=== PATIENT | male | born 1970 | race Caucasian/White ===

== ENCOUNTER 2017-05-04 17:01 | Emergency (ER) | payer OTHER ==
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
--- NOTE | 2017-05-04 18:49 | XR ---
EXAMINATION TYPE: XR ribs LT w pa chest xray DATE OF EXAM: 05/04/2017 COMPARISON: NONE HISTORY: Chest pain and rib pain TECHNIQUE: 5 views FINDINGS: Heart and mediastinum are normal. Lungs are clear of infiltrate. I see no pleural effusion or pneumothorax. The left ribs appear intact. IMPRESSION: Normal chest and normal left rib exam.
[2017-05-04 19:14] VITALS: BP 129/80; PULSE 80; RESP 16; TEMP 98.5
== END 2017-05-04 19:31 | disposition left against medical advice (07) ==
LOC: EC 17:01
DX: S00.83XA Contusion of other part of head, initial encounter (principal); S20.212A Contusion of left front wall of thorax, initial encounter; F17.200 Nicotine dependence, unspecified, uncomplicated; Y04.0XXA Assault by unarmed brawl or fight, initial encounter; Y92.410 Unspecified street and highway as the place of occurrence of the external cause; Y93.01 Activity, walking, marching and hiking
CPT/HCPCS: 70450; 70486; 72125; 99284

== ENCOUNTER 2017-07-08 16:13 | Emergency (ER) | payer OTHER ==
[2017-07-08 16:16] VITALS: TEMP 97.5
[2017-07-08] MEDS ORDERED: SODIUM CHLORIDE 0.9% 1,000 ML IV STA (16:28)
[2017-07-08] MEDS ORDERED: RX INFO: IV CONTRAST WAS GIVEN 1 EACH MISC MISCELLANE PRN (16:36)
--- NOTE | 2017-07-08 16:38 | ED ---
Abdominal Pain HPI - General Chief Complaint: Abdominal Pain Stated Complaint: Lower Abd Pain Time Seen by Provider: 07/08/17 16:27 Source: patient, RN notes reviewed Mode of arrival: ambulatory Limitations: no limitations - History of Present Illness Initial Comments: This 46-year-old male presents emergency Department with right lower quadrant, right groin pain. Patient states that she had pain last 2 weeks states worse. Patient states he is no change in bowel habits denies any diarrhea, constipation , melena or hematochezia. Patient denies any nausea, vomiting, chest pain, back pain. Patient states that a large amount of lifting and twisting bending does increase his pain. Patient said no prior abdominal surgeries. Patient denies any bulging or swelling noted. - Related Data Home Medications Medication Instructions Recorded Confirmed No Known Home Medications [No 05/04/17 07/08/17 Known Home Medications] Allergies Allergy/AdvReac Type Severity Reaction Status Date / Time No Known Allergies Allergy Verified 07/08/17 16:29 Review of Systems ROS Statement: Those systems with pertinent positive or pertinent negative responses have been documented in the HPI. ROS Other: All systems not noted in ROS Statement are negative. Past Medical History Past Medical History: Chest Pain / Angina, Myocardial Infarction ([place]) Additional Past Medical History / Comment(s): [place] x 2 Last Myocardial Infarction Date:: 2007 History of Any Multi-Drug Resistant Organisms: None Reported Past Surgical History: No Surgical Hx Reported Additional Past Surgical History / Comment(s): Knee surg Past Anesthesia/Blood Transfusion Reactions: No Reported Reaction Past Psychological History: No Psychological Hx Reported Smoking Status: Current every day smoker Past Alcohol Use History: Abuse, Daily, Heavy Past Drug Use History: None Reported - Past Family History Mother Family Medical History: Cancer Additional Family Medical History / Comment(s): Lung CA Father Family Medical History: Myocardial Infarction ([place]) Additional Family Medical History / Comment(s): Cirrhosis of liver. of [place] General Exam Limitations: no limitations General appearance: alert, in no apparent distress Head exam: Present: atraumatic, normocephalic, normal inspection Respiratory exam: Present: normal lung sounds bilaterally. Absent: respiratory distress, wheezes, rales, rhonchi, stridor Cardiovascular Exam: Present: regular rate, normal rhythm, normal heart sounds. Absent: systolic murmur, diastolic murmur, rubs, gallop, clicks GI/Abdominal exam: Present: soft, tenderness (Mild right inguinal region), normal bowel sounds. Absent: distended, guarding, rebound, rigid Back exam: Absent: CVA tenderness (R), CVA tenderness (L) Course Vital Signs 07/08/17 16:15 Temperature 97.5 F L Pulse Rate 109 H Respiratory 20 Rate Blood Pressure 134/89 O2 Sat by Pulse 96 Oximetry Medical Decision Making - Medical Decision Making 38-year-old male presented for right lower groin pain. Patient has a right inguinal hernia. Patient pain has been persistent last few weeks. Patient will follow-up with on-call surgery Dr. Amanda return parameters were discussed. - Lab Data Result diagrams: 07/08/17 16:30 07/08/17 16:30 Lab Results 07/08/17 07/08/17 07/08/17 Range/Units 16:30 16:30 16:42 WBC 7.9 (3.8-10.6) k/uL RBC 4.14 L (4.30-5.90) m/uL Hgb 14.4 (13.0-17.5) gm/dL Hct 42.3 (39.0-53.0) % MCV 102.2 H (80.0-100.0) fL MCH 34.7 (25.0-35.0) pg MCHC 34.0 (31.0-37.0) g/dL RDW 15.0 (11.5-15.5) % Plt Count 300 (150-450) k/uL Neutrophils % 52 % Lymphocytes % 35 % Monocytes % 7 % Eosinophils % 2 % Basophils % 1 % Neutrophils # 4.1 (1.3-7.7) k/uL Lymphocytes # 2.8 (1.0-4.8) k/uL Monocytes # 0.5 (0-1.0) k/uL Eosinophils # 0.2 (0-0.7) k/uL Basophils # 0.0 (0-0.2) k/uL Macrocytosis Slight Sodium 132 L (137-145) mmol/L Potassium 4.5 (3.5-5.1) mmol/L Chloride 98 (98-107) mmol/L Carbon Dioxide 21 L (22-30) mmol/L Anion Gap 13 mmol/L BUN 7 L (9-20) mg/dL Creatinine 0.82 (0.66-1.25) mg/dL Est GFR (MDRD) Af Amer >60 (>60 ml/min/1.73 sqM) Est GFR (MDRD) Non-Af >60 (>60 ml/min/1.73 sqM) Glucose 82 (74-99) mg/dL Plasma Lactic Acid Cristhian 1.6 (0.7-2.0) mmol/L Calcium 9.5 (8.4-10.2) mg/dL Total Bilirubin 0.8 (0.2-1.3) mg/dL AST 42 (17-59) U/L ALT 48 (21-72) U/L Alkaline Phosphatase 64 (38-126) U/L Total Protein 7.8 (6.3-8.2) g/dL Albumin 4.7 (3.5-5.0) g/dL Amylase 138 H (30-110) U/L Lipase 231 (23-300) U/L Urine Color Urine Appearance (Clear) Urine pH (5.0-8.0) Ur Specific [place] (1.001-1.035) Urine Protein (Negative) Urine Glucose (UA) (Negative) Urine Ketones (Negative) Urine Blood (Negative) Urine Nitrite (Negative) Urine Bilirubin (Negative) Urine Urobilinogen (<2.0) mg/dL Ur Leukocyte Esterase (Negative) 07/08/17 Range/Units 16:50 WBC (3.8-10.6) k/uL RBC (4.30-5.90) m/uL Hgb (13.0-17.5) gm/dL Hct (39.0-53.0) % MCV (80.0-100.0) fL MCH (25.0-35.0) pg MCHC (31.0-37.0) g/dL RDW (11.5-15.5) % Plt Count (150-450) k/uL Neutrophils % % Lymphocytes % % Monocytes % % Eosinophils % % Basophils % % Neutrophils # (1.3-7.7) k/uL Lymphocytes # (1.0-4.8) k/uL Monocytes # (0-1.0) k/uL Eosinophils # (0-0.7) k/uL Basophils # (0-0.2) k/uL Macrocytosis Sodium (137-145) mmol/L Potassium (3.5-5.1) mmol/L Chloride (98-107) mmol/L Carbon Dioxide (22-30) mmol/L Anion Gap mmol/L BUN (9-20) mg/dL Creatinine (0.66-1.25) mg/dL Est GFR (MDRD) Af Amer (>60 ml/min/1.73 sqM) Est GFR (MDRD) Non-Af (>60 ml/min/1.73 sqM) Glucose (74-99) mg/dL Plasma Lactic Acid Cristhian (0.7-2.0) mmol/L Calcium (8.4-10.2) mg/dL Total Bilirubin (0.2-1.3) mg/dL AST (17-59) U/L ALT (21-72) U/L Alkaline Phosphatase (38-126) U/L Total Protein (6.3-8.2) g/dL Albumin (3.5-5.0) g/dL Amylase (30-110) U/L Lipase (23-300) U/L Urine Color Light Yellow Urine Appearance Clear (Clear) Urine pH 5.5 (5.0-8.0) Ur Specific [place] 1.002 (1.001-1.035) Urine Protein Negative (Negative) Urine Glucose (UA) Negative (Negative) Urine Ketones Negative (Negative) Urine Blood Negative (Negative) Urine Nitrite Negative (Negative) Urine Bilirubin Negative (Negative) Urine Urobilinogen <2.0 (<2.0) mg/dL Ur Leukocyte Esterase Negative (Negative) Disposition Clinical Impression: Right inguinal hernia Disposition: HOME SELF-CARE Condition: Stable Instructions: Inguinal Hernia (ED) Additional Instructions: Please return to the Emergency Department if symptoms worsen or any other concerns. Referrals: None,Stated [Primary Care Provider] - 1-2 days Paul Amanda MD [Medical Doctor] - 1-2 days Time of Disposition: 17:27
[2017-07-08 16:44] LABS: Basophils % (A) 1 %; CH 34.4; CHCM 33.8; Eosinophils # (A) 0.2 k/uL (0-0.7); Eosinophils % (A) 2 %; HCT 42.3 % (39.0-53.0); HDW 2.39; HGB 14.4 gm/dL (13.0-17.5); Luc # (Auto) 0.26; Luc % (Auto) 3; Lymphocytes # (A) 2.8 k/uL (1.0-4.8); Lymphocytes % (A) 35 %; MCH 34.7 pg (25.0-35.0); MCV 102.2 fL (80.0-100.0); Macrocytosis Slight; Monocytes # (A) 0.5 k/uL (0-1.0); Monocytes % (A) 7 %; Neutrophils # (A) 4.1 k/uL (1.3-7.7); Neutrophils % (A) 52 %; RBC 4.14 m/uL (4.30-5.90); WBC 7.9 k/uL (3.8-10.6); WBC (Perox) 7.36
[2017-07-08 16:53] LABS: ALT 48 U/L (21-72); AST 42 U/L (17-59); Alkaline Phosphatase 64 U/L (38-126); Amylase 138 U/L (30-110); Anion Gap 13 mmol/L; Blood Urea Nitrogen 7 mg/dL (9-20); Calcium 9.5 mg/dL (8.4-10.2); Carbon Dioxide 21 mmol/L (22-30); Chloride 98 mmol/L (98-107); Glucose 82 mg/dL (74-99); Non-African American GFR(MDRD) >60 (>60 ml/min/1.73 sqM); Potassium 4.5 mmol/L (3.5-5.1); Sodium 132 mmol/L (137-145); Total Bilirubin 0.8 mg/dL (0.2-1.3); Total Protein 7.8 g/dL (6.3-8.2)
[2017-07-08 17:13] LABS: Appearance,Urine Clear (Clear); Bilirubin,Urine Negative (Negative); Glucose,Urine (UA) Negative (Negative); Ketones,Urine Negative (Negative); Leukocyte Esterase,Urine Negative (Negative); Nitrite,Urine Negative (Negative); PH, Urine 5.5 (5.0-8.0); Protein,Urine Negative (Negative); Specific Gravity,Urine 1.002 (1.001-1.035); UA Billing (MACRO vs. MICRO) CHEM; Urobilinogen,Urine <2.0 mg/dL (<2.0)
--- NOTE | 2017-07-08 17:20 | CT ---
EXAMINATION TYPE: CT abdomen pelvis w con DATE OF EXAM: 07/08/2017 COMPARISON: NONE HISTORY: RLQ pain for [address] DLP: 520.4 mGycm Automated exposure control for dose reduction was used. TECHNIQUE: Helical acquisition of images was performed from the lung bases through the pelvis. CONTRAST: Performed without Oral Contrast and with IV Contrast, patient injected with 100 mL of Omnipaque 300. FINDINGS: Lung bases are clear. There is no pleural effusion. Heart size is normal. Liver spleen pancreas gallbladder appear normal. Bile ducts are not dilated. There is no adrenal mass . Kidneys show satisfactory contrast opacification. There is no hydronephrosis. There is no retroperito mady adenopathy. There is no ascites. Bladder distends smoothly. There is mild urinary bladder wall t hickening. I see no intestinal wall thickening. There are no dilated loops. There is no free fluid in the pelvis . Appendix appears normal. I see no bony destructive process. There is evidence for small right inguinal hernia that contains omental fat. IMPRESSION: MILD URINARY BLADDER WALL THICKENING CONSISTENT WITH NONSPECIFIC CYSTITIS. BORDERLINE RIGHT INGUINAL HERNIA. NORMAL APPENDIX.
[2017-07-08 17:38] VITALS: BP 118/59; PULSE 88; RESP 16
== END 2017-07-08 17:38 | disposition home or self-care (01) ==
LOC: EC 16:13
DX: K40.90 Unilateral inguinal hernia, without obstruction or gangrene, not specified as recurrent (principal); F17.200 Nicotine dependence, unspecified, uncomplicated
CPT/HCPCS: 36415; 80053; 82150; 83605; 83690; 85025; 81003; 74177; 99284; 96360; Q9967

== ENCOUNTER 2017-09-06 08:53 | Day surgery (SDC) | payer OTHER ==
--- NOTE | 2017-09-04 17:44 | P.GSHP ---
History of Present Illness H&P Date: 09/06/17 Chief Complaint: Right inguinal hernia Patient seen in the office in July. Has complaints of a painful bulge in the right groin. He went to the ER for evaluation. A CAT scan confirmed a right inguinal hernia. Denies nausea or vomiting. No change in bowel habits. The patient has a history of previous [place]. He was seen by Dr. Clemens from cardiology for clearance. He was cleared for the procedure at that time. Past Medical History Past Medical History: Chest Pain / Angina, Myocardial Infarction ([place]) Additional Past Medical History / Comment(s): [place] x 2 Last Myocardial Infarction Date:: 2007 History of Any Multi-Drug Resistant Organisms: None Reported Past Surgical History: No Surgical Hx Reported Additional Past Surgical History / Comment(s): Knee surg Past Anesthesia/Blood Transfusion Reactions: No Reported Reaction Additional Past Anesthesia/Blood Transfusion Reaction / Comment(s): NO GENERAL ANESTHESIA. Past Psychological History: No Psychological Hx Reported Smoking Status: Current every day smoker Past Alcohol Use History: Abuse, Daily, Heavy Additional Past Alcohol Use History / Comment(s): SMOKES 1 PPD, 20 YRS. A COUPLE A BEERS. Past Drug Use History: None Reported - Past Family History Mother Family Medical History: Cancer Additional Family Medical History / Comment(s): Lung CA Father Family Medical History: Myocardial Infarction ([place]) Additional Family Medical History / Comment(s): Cirrhosis of liver. of [place] Medications and Allergies Home Medications Medication Instructions Recorded Confirmed Type No Known Home Medications [No 05/04/17 09/01/17 History Known Home Medications] Allergies Allergy/AdvReac Type Severity Reaction Status Date / Time No Known Allergies Allergy Verified 09/01/17 15:03 Surgical - Exam Physical exam: General: Well-developed, well-nourished HEENT: Normocephalic, sclerae nonicteric Abdomen: Nontender, nondistended, reducible moderate sized right hernia, no palpable left inguinal hernia, both testicles normal, questionable small incarcerated umbilical hernia Extremities: No edema Neuro: Alert and oriented Assessment and Plan (1) Right inguinal hernia Narrative/Plan: Options were discussed with the patient. We'll proceed with laparoscopic da Inessa assisted right inguinal hernia repair with mesh, possible bilateral, possible umbilical hernia repair with mesh on 09/06. Risks of bleeding, infection, recurrence, bladder and bowel injury, numbness, nerve injury, conversion to an open procedure were discussed with the patient. The patient understands and wishes to proceed. Status: Acute Code(s): K40.90 - UNIL INGUINAL HERNIA, W/O OBST OR GANGR, NOT SPCF RECUR [facility] Code(s): 394974337
[~2017-09-06 08:53] MED LIST: DEXAMETHASONE SOD PHOSPHATE 10 MG/ML 1 ML VIAL IV ONE; HEPARIN SODIUM,PORCINE 5,000 UNIT/ML 1 ML VIAL SQ ONE; HYDROmorphone 0.5 MG/0.5 ML SYRINGE IVP PRN; MIDAZOLAM 2 MG/2 ML VIAL IV PRN; ONDANSETRON 4 MG/2 ML VIAL IVP ONE; SCOPOLAMINE 1.5MG/72HR PATCH TRANSDERM ONE; ceFAZolin IN SWFI 2 GM/20 ML SYRINGE IVP ONE
[2017-09-06] MEDS ORDERED: LIDOCAINE 1% 20 ML VIAL (10MG/ML) FOR IV START INTRADERMA ONE (09:30)
[2017-09-06 09:34] VITALS: RESP 16
[2017-09-06] MEDS: LACTATED RINGERS 1,000 ML IV SCH (09:34)
[2017-09-06] MEDS ORDERED: PROPOFOL 10 MG/ML 20 ML VIAL IV ONE (09:35)
[2017-09-06] MEDS ORDERED: SUCCINYLCHOLINE CHLORIDE 100 MG/5 ML SYR IV ONE (09:35)
[2017-09-06] MEDS ORDERED: MIDAZOLAM 2 MG/2 ML VIAL ONE (09:35)
[2017-09-06] MEDS ORDERED: ROCURONIUM BROMIDE 10 MG/ML 10 ML VIAL IV ONE (09:35)
[2017-09-06] MEDS ORDERED: HYDROmorphone (PF) 1 MG/ML ONE (09:35)
[2017-09-06] MEDS ORDERED: LIDOCAINE 1% INJ 10MG/ML (20 ML MDV) ONE (09:35)
[2017-09-06] MEDS ORDERED: NEOSTIGMINE 1 MG/ML 10 ML VIAL ONE (09:35)
[2017-09-06] MEDS ORDERED: GLYCOPYRROLATE 0.2 MG/ML 2 ML VIAL ONE (09:35)
[2017-09-06] MEDS ORDERED: fentaNYL (PF) 50 MCG/ML 2 ML AMP ONE (09:35)
[2017-09-06] MEDS ORDERED: LABETALOL 5 MG/ML VIAL MDV ONE (09:35)
[2017-09-06] MEDS ORDERED: KETOROLAC 30 MG/ML 1 ML VIAL ONE (09:35)
[2017-09-06] MEDS ORDERED: BUPIVACAINE (PF) 0.25% 30 ML VIAL SQ ONE (10:24)
[2017-09-06] MEDS ORDERED: NALOXONE 0.4 MG/ML 1 ML VIAL IV PRN (11:41)
[2017-09-06] MEDS ORDERED: HYDROcodone/APAP 5-325MG 1 EACH TAB PO PRN (11:41)
[2017-09-06] MEDS ORDERED: LACTATED RINGERS 1,000 ML IV ONE (11:46)
--- NOTE | 2017-09-06 11:48 | P.OP ---
Date of Procedure: 09/06/17 Procedure(s) Performed: PREOPERATIVE DIAGNOSIS: Right inguinal hernia, umbilical hernia POSTOPERATIVE DIAGNOSIS: Same PROCEDURE: Laparoscopic repair right inguinal hernia with the da Inessa robot assistance with mesh, open umbilical herniorrhaphy SURGEON: Treasure EBL: Minimal ANESTHESIA: General COMPLICATIONS: None OPERATIVE PROCEDURE: Patient was placed in the operating table in the supine position. The patient was placed under general anesthesia. The patient was then placed in lithotomy. The abdomen was prepped and draped in usual sterile fashion. A infraumbilical incision was made using the scalpel. The subcutaneous tissues were dissected bluntly. The hernia sac was identified. The umbilical attachments to the fascia were divided using electrocautery. The hernia sac was excised. The fascia was retracted anteriorly with Oliva forceps. The Veress needle was inserted through the defect in the fascia. The saline drop test was normal. Insufflation took place to 15 mmHg. A 5 mm trocar was then inserted this was later switched to a 12 mm trocar. 2 additional 8 mm trochars were placed in the right upper quadrant and left upper quadrant under visualization. The robotic arms were then brought in and docked into place. The fenestrated bipolar was used in the left arm and the laparoscopic hook cautery was utilized in the right arm. A 30 12 mm scope was used in the up position. The peritoneal cavity was inspected. The patient had a obvious right indirect inguinal hernia. There was a slight depression at the internal inguinal ring on the left without definite hernia formation. The peritoneum was incised in a horizontal fashion cephalad to the internal inguinal ring. Following that careful dissection of the preperitoneal space took place. This took place using both electrocautery, sharp dissection but primarily blunt dissection. Visualization of the pubic tubercle and Arthur's ligament took place medially. Full dissection took place laterally as well. The patient's hernia was fairly large in size. The hernia sac was fully dissected. Once we had adequate space the 15 x 10 progrip mesh was advanced into the preperitoneal space and flattened out appropriately to cover all potential hernia sites. No sutures were used. The peritoneal defect was then closed using a locking 2-0 VLok suture. A small 1 x 1 cm defect in the peritoneum was closed using a short running 2-0 Vicryl stitch. The pneumoperitoneum was then evacuated. The fascia at the 12 mm site was closed using interrupted [id number] Ethibond sutures. The skin of all 3 sites was closed using a 4-0 Monocryl stitch. Steri-Strips and sterile dressings were applied. DISPOSITION: Stable to recovery room
[2017-09-06 11:58] VITALS: TEMP 98.6
[2017-09-06] MEDS ORDERED: HYDROcodone/APAP 5-325MG 1 EACH TAB PO ONE (13:43)
[2017-09-06 14:41] VITALS: BP 146/90; PULSE 71
== END 2017-09-06 15:10 | disposition home or self-care (01) ==
LOC: OR 08:53
PROVIDERS: ATTEND Surgery
DX: K40.90 Unilateral inguinal hernia, without obstruction or gangrene, not specified as recurrent (principal); K42.9 Umbilical hernia without obstruction or gangrene; I25.10 Atherosclerotic heart disease of native coronary artery without angina pectoris; I25.2 Old myocardial infarction; F17.210 Nicotine dependence, cigarettes, uncomplicated; Z82.49 Family history of ischemic heart disease and other diseases of the circulatory system; Z80.1 Family history of malignant neoplasm of trachea, bronchus and lung
CPT/HCPCS: 49650; 49585; 93005; 86900; 86901; 86850; 36415; J1644; J1100; J0690; J2405

== ENCOUNTER 2017-10-02 21:06 | Emergency (ER) | payer OTHER ==
[2017-10-02] MEDS ORDERED: KETOROLAC 30 MG/ML 1 ML VIAL IVP STA (21:57)
[2017-10-02] MEDS ORDERED: DEXAMETHASONE SOD PHOSPHATE 10 MG/ML 1 ML VIAL IV STA (21:57)
[2017-10-02] MEDS ORDERED: diphenhydrAMINE 50 MG/ML 1 ML VIAL IVP STA (21:57)
[2017-10-02] MEDS ORDERED: SODIUM CHLORIDE 0.9% 1,000 ML IV ONE (21:57)
[2017-10-02] MEDS ORDERED: METOCLOPRAMIDE 5 MG/ML 2 ML VIAL IVP STA (21:57)
--- NOTE | 2017-10-02 22:02 | ED ---
Headache HPI - General Chief Complaint: Headache Stated Complaint: headache Time Seen by Provider: 10/02/17 21:36 Mode of arrival: wheelchair Limitations: no limitations - History of Present Illness Initial Comments: patient is a 47-year-old male with a history of alcohol abuse and previous NM who presents with a chief complaint of a headache. He also has a medical history that includes migraine headaches. He states this is been going on for 14 days. Patient states that the pain pattern is typical of a migraine though he has never had workup for this long. He tried taking Aleve at home without relief. He cannot identify any inciting incidences. Light and sound or aggravating factors. There are no alleviating factors. Timing is been constant. Patient states that he walked to the emergency department today. - Related Data Home Medications Medication Instructions Recorded Confirmed No Known Home Medications [No 05/04/17 10/02/17 Known Home Medications] Allergies Allergy/AdvReac Type Severity Reaction Status Date / Time No Known Allergies Allergy Verified 10/02/17 21:28 Review of Systems ROS Statement: Those systems with pertinent positive or pertinent negative responses have been documented in the HPI. ROS Other: All systems not noted in ROS Statement are negative. Constitutional: Denies: fever Eyes: Denies: vision change ENT: Denies: throat pain Respiratory: Denies: cough Cardiovascular: Denies: chest pain Gastrointestinal: Denies: abdominal pain, nausea, vomiting Genitourinary: Denies: dysuria Musculoskeletal: Denies: back pain Skin: Denies: rash Neurological: Reports: headache Past Medical History Past Medical History: Chest Pain / Angina, Myocardial Infarction ([place]) Additional Past Medical History / Comment(s): [place] x 2 Last Myocardial Infarction Date:: 2007 History of Any Multi-Drug Resistant Organisms: None Reported Past Surgical History: Hernia Repair Additional Past Surgical History / Comment(s): Knee surg Past Anesthesia/Blood Transfusion Reactions: No Reported Reaction Additional Past Anesthesia/Blood Transfusion Reaction / Comment(s): NO GENERAL ANESTHESIA. Past Psychological History: No Psychological Hx Reported Smoking Status: Current every day smoker Past Alcohol Use History: Abuse, Daily, Heavy Past Drug Use History: None Reported - Past Family History Mother Family Medical History: Cancer Additional Family Medical History / Comment(s): Lung CA Father Family Medical History: Myocardial Infarction ([place]) Additional Family Medical History / Comment(s): Cirrhosis of liver. of [place] General Exam Limitations: no limitations General appearance: alert, in no apparent distress Head exam: Present: atraumatic, normocephalic Eye exam: Present: normal appearance, PERRL, EOMI Neck exam: Absent: lymphadenopathy Respiratory exam: Present: normal lung sounds bilaterally Cardiovascular Exam: Present: regular rate, normal rhythm GI/Abdominal exam: Present: soft. Absent: distended, tenderness Rectal exam: Present: deferred Neurological exam: Present: alert, oriented X3, CN II-XII intact, normal gait, other (negative Romberg, there are no meningeal signs) Psychiatric exam: Present: normal affect, normal mood Skin exam: Present: warm, dry, intact Course Vital Signs 10/02/17 10/02/17 21:21 22:21 Temperature 98.5 F Pulse Rate 69 58 L Respiratory 18 18 Rate Blood Pressure 123/78 146/78 O2 Sat by Pulse 98 96 Oximetry Medical Decision Making - Medical Decision Making patient presents with a chief complaint of headache 2 weeks. On initial evaluation, vital signs are stable, patient is in no acute distress and looks uncomfortable secondary to headache. This headache fits his normal migraine pattern however this is just a longer duration. On exam, there is no neck tenderness or meningeal signs. Neurologic examination is benign. Patient will be given a migraine cocktail and reassessed. 11:39 PM On reevaluation, patient is in walking. He states that he feels better. At this time he is stable for discharge. He was given exposing signs and symptoms that should probably return visit to the emergency department. He is further advised to follow-up with primary care in 1-2 days. Disposition Clinical Impression: Migraine headache Disposition: HOME SELF-CARE Condition: Good Instructions: Acute Headache (ED) Referrals: None,Stated [Primary Care Provider] - 1-2 days
[2017-10-02 23:45] VITALS: BP 137/71; PULSE 62; RESP 16; TEMP 98
== END 2017-10-02 23:55 | disposition home or self-care (01) ==
LOC: EC 21:06
DX: G43.909 Migraine, unspecified, not intractable, without status migrainosus (principal); F17.200 Nicotine dependence, unspecified, uncomplicated
CPT/HCPCS: 99284; 96374; 96375 ×3; 96361; J1200; J1100; J2765; J1885

== ENCOUNTER 2017-11-29 11:05 | Emergency (ER) | payer OTHER ==
[2017-11-29 11:15] VITALS: TEMP 96.8
[2017-11-29] MEDS ORDERED: ORPHENADRINE 30 MG/ML 2 ML VIAL IM STA (11:28)
[2017-11-29] MEDS ORDERED: methylPREDNISolone SOD SUCCI 125 MG/2 ML VIAL IM STA (11:28)
[2017-11-29] MEDS ORDERED: KETOROLAC 60 MG/2 ML VIAL IM STA (11:28)
--- NOTE | 2017-11-29 11:43 | ED ---
General Adult HPI - General Chief complaint: Back Pain/Injury Stated complaint: Back Pain Time Seen by Provider: 11/29/17 11:21 Source: patient, EMS, RN notes reviewed Mode of arrival: EMS Limitations: no limitations - History of Present Illness Initial comments: 47 yo male presents to the ER with cc of right sided back pain. Patient has had this pain for about 3 months. Patient states it is on and off. Patient states that his left groin hip and radiates on the left leg. Patient states that when he wakes up that this type of by the end of the day it's loose. Patient states that today he woke up and it just seems to be tighter than normal so he thought that he should be seen. He denies any falls traumas or injuries. He denies any loss of bowel or bladder function or any saddle anesthesia. Patient states eating seems to make it better sitting seems to make it worse. Patient denies any recent fever, chills, shortness of breath, chest pain, abdominal pain, nausea vomiting, numbness or tingling, dysuria or hematuria, constipation or diarrhea, headaches or visual changes, or any other current symptoms. - Related Data Home Medications Medication Instructions Recorded Confirmed Ibuprofen [Motrin Ib] 800 mg PO Q6H PRN 11/29/17 11/29/17 Previous Rx's Medication Instructions Recorded Ibuprofen [Motrin] 600 mg PO Q6HR PRN #20 tab 11/29/17 Orphenadrine [Norflex] 100 mg PO Q12H #10 tablet.er 11/29/17 predniSONE 50 mg PO DAILY #5 tab 11/29/17 Allergies Allergy/AdvReac Type Severity Reaction Status Date / Time No Known Allergies Allergy Verified 11/29/17 11:28 Review of Systems ROS Statement: Those systems with pertinent positive or pertinent negative responses have been documented in the HPI. ROS Other: All systems not noted in ROS Statement are negative. Past Medical History Past Medical History: Chest Pain / Angina, Myocardial Infarction ([place]) Additional Past Medical History / Comment(s): [place] x 2 Last Myocardial Infarction Date:: 2007 History of Any Multi-Drug Resistant Organisms: None Reported Past Surgical History: Hernia Repair Additional Past Surgical History / Comment(s): Knee surg Past Anesthesia/Blood Transfusion Reactions: No Reported Reaction Additional Past Anesthesia/Blood Transfusion Reaction / Comment(s): NO GENERAL ANESTHESIA. Past Psychological History: No Psychological Hx Reported Smoking Status: Current every day smoker Past Alcohol Use History: Abuse, Daily, Heavy Past Drug Use History: None Reported - Past Family History Mother Family Medical History: Cancer Additional Family Medical History / Comment(s): Lung CA Father Family Medical History: Myocardial Infarction ([place]) Additional Family Medical History / Comment(s): Cirrhosis of liver. of [place] General Exam Limitations: no limitations General appearance: alert, in no apparent distress ENT exam: Present: normal exam, mucous membranes moist Neck exam: Present: normal inspection. Absent: tenderness, meningismus, lymphadenopathy Respiratory exam: Present: normal lung sounds bilaterally. Absent: respiratory distress, wheezes, rales, rhonchi, stridor Cardiovascular Exam: Present: regular rate, normal rhythm, normal heart sounds. Absent: systolic murmur, diastolic murmur, rubs, gallop, clicks Extremities exam: Present: normal inspection, full ROM, normal capillary refill. Absent: tenderness, pedal edema, joint swelling, calf tenderness Back exam: Present: normal inspection, full ROM, tenderness (Over the SI joint) , other (Positive straight leg raise on the left). Absent: rash noted Neurological exam: Present: alert, oriented X3 Psychiatric exam: Present: normal affect, normal mood Skin exam: Present: warm, dry, intact, normal color. Absent: rash Course Vital Signs 11/29/17 11/29/17 11:12 13:34 Temperature 96.8 F L Pulse Rate 110 H 78 Respiratory 20 18 Rate Blood Pressure 159/105 136/80 O2 Sat by Pulse 98 95 Oximetry Medical Decision Making - Medical Decision Making 47-year-old male presents for what appears to be a left leg sciatica. At this time the patient is feeling much better. At this time we will state patient states for home. We did discuss follow-up and return parameters all questions. Patient stated that he understood and he is agreement this plan. This time he will be discharged. - Radiology Data Radiology results: report reviewed, image reviewed Disposition Clinical Impression: Left sided sciatica Disposition: HOME SELF-CARE Condition: Stable Instructions: Sciatica (ED) Additional Instructions: Please use medication as discussed. Please follow up with family doctor if symptoms have not improved over the next two days. Please return to the emergency room if your symptoms increase or worsen or for any other concerns. Prescriptions: Ibuprofen [Motrin] 600 mg PO Q6HR PRN #20 tab PRN Reason: Pain Orphenadrine [Norflex] 100 mg PO Q12H #10 tablet.er predniSONE 50 mg PO DAILY #5 tab Referrals: Fer Israel DO [Doctor of Osteopathic Medicine] - 1-2 days Time of Disposition: 14:27
[2017-11-29] MEDS ORDERED: HYDROmorphone 0.5 MG/0.5 ML SYRINGE IVP STA (12:32)
[2017-11-29] MEDS ORDERED: HYDROmorphone 0.5 MG/0.5 ML SYRINGE IM STA (12:49)
[2017-11-29 13:35] VITALS: RESP 18
--- NOTE | 2017-11-29 14:20 | XR ---
EXAMINATION TYPE: XR lumbar spine 2 or 3V DATE OF EXAM: 11/29/2017 COMPARISON: NONE HISTORY: 47-year-old male with low back pain for 3 months TECHNIQUE: 3 views FINDINGS: 5 lumbar type vertebral bodies. Facet arthropathy mid to lower lumbar spine. There may be minimal dis c space narrowing throughout the lumbar spine. Vertebral body heights are preserved and alignment is maintained. IMPRESSION: 1. Mild facet arthropathy mid to lower lumbar spine and minimal disc space narrowing throughout. 2. No vertebral compression collapse or malalignment.
[2017-11-29 14:35] VITALS: BP 154/91; PULSE 70
== END 2017-11-29 14:34 | disposition home or self-care (01) ==
LOC: EC 11:05
DX: M54.32 Sciatica, left side (principal); F17.200 Nicotine dependence, unspecified, uncomplicated
CPT/HCPCS: 72100; 99283; 96372 ×4; J2360; J2930; J1885; J1170

== ENCOUNTER 2017-12-07 08:37 | Emergency (ER) | payer OTHER ==
[2017-12-07 08:48] VITALS: TEMP 97.1
[2017-12-07 09:45] VITALS: BP 173/92; PULSE 108; RESP 18
[2017-12-07] MEDS ORDERED: KETOROLAC 60 MG/2 ML VIAL IM STA (10:16)
--- NOTE | 2017-12-07 10:21 | ED ---
Back Pain HPI - General Chief Complaint: Back Pain/Injury Stated Complaint: Back Pain Time Seen by Provider: 12/07/17 10:08 Source: patient, EMS Limitations: no limitations - History of Present Illness Initial Comments: This 57-year-old white male presents with a complaint of some left buttock pain that radiates down his left leg. He states that he has had this for the last 3 months. It has been intermittent in nature but worse for the last 3 days. He denies any bowel or bladder abnormalities. He denies any fevers or chills. He denies any injuries. He was seen here last week and was prescribed some medicines and it seemed to be doing well until 3 days ago. He states that it is painful for him to sit up straight. He has pain and numbness radiating down the proximal aspect of his left leg. No other complaints or modifying factors. He has not followed up with his primary care physician for this in the last 3 months. He has not followed up with a back specialist. He has not had an MRI scan of his back as of yet. - Related Data Previous Rx's Medication Instructions Recorded Cyclobenzaprine [Flexeril] 10 mg PO TID PRN #20 tab 12/07/17 predniSONE 20 mg PO BID #10 tab 12/07/17 traMADol HCl [Ultram] 50 - 100 mg PO Q6H PRN #15 tab 12/07/17 Allergies Allergy/AdvReac Type Severity Reaction Status Date / Time No Known Allergies Allergy Verified 12/07/17 08:58 Review of Systems ROS Statement: Those systems with pertinent positive or pertinent negative responses have been documented in the HPI. ROS Other: All systems not noted in ROS Statement are negative. Past Medical History Past Medical History: Chest Pain / Angina, Myocardial Infarction ([place]) Additional Past Medical History / Comment(s): [place] x 2 Last Myocardial Infarction Date:: 2007 History of Any Multi-Drug Resistant Organisms: None Reported Past Surgical History: Hernia Repair Additional Past Surgical History / Comment(s): Knee surg Past Anesthesia/Blood Transfusion Reactions: No Reported Reaction Additional Past Anesthesia/Blood Transfusion Reaction / Comment(s): NO GENERAL ANESTHESIA. Past Psychological History: No Psychological Hx Reported Smoking Status: Current every day smoker Past Alcohol Use History: Abuse, Daily, Heavy Past Drug Use History: None Reported - Past Family History Mother Family Medical History: Cancer Additional Family Medical History / Comment(s): Lung CA Father Family Medical History: Myocardial Infarction ([place]) Additional Family Medical History / Comment(s): Cirrhosis of liver. of [place] General Exam Limitations: no limitations General appearance: alert, other (Mild distress noted.) Extremities exam: Present: normal inspection, full ROM. Absent: tenderness, pedal edema, calf tenderness Back exam: Present: other (There is tenderness noted into the mid left buttock region. There is no tenderness into the lower back or upper back.) Neurological exam: Present: alert, oriented X3, reflexes normal. Absent: motor sensory deficit Psychiatric exam: Present: normal affect, normal mood Skin exam: Present: intact. Absent: rash Course Vital Signs 12/07/17 12/07/17 08:39 09:44 Temperature 97.1 F L Pulse Rate 113 H 108 H Respiratory 15 18 Rate Blood Pressure 174/90 173/92 O2 Sat by Pulse 99 96 Oximetry Medical Decision Making - Medical Decision Making The patient was seen and examined. Old records were reviewed. He had an x-ray last week of his lumbar spine which did show some degenerative changes. Is felt as though his symptoms are very likely related to a number radiculopathy. This was discussed with him. It is felt as though he would benefit from outpatient follow-up with his primary physician and would likely need an MRI scan of his lumbar spine. It is also felt as though he benefit from following up with a back specialist. He is given Toradol 60 mg IM. In the meantime we will attempt to help control his pain. He understands that it is very important to follow-up with his primary physician instead of coming to the emergency department for continued symptomatic relief. Disposition Clinical Impression: Left sided sciatica Disposition: HOME SELF-CARE Condition: Good Instructions: Acute Low Back Pain (ED), Sciatica (ED) Prescriptions: Cyclobenzaprine [Flexeril] 10 mg PO TID PRN #20 tab PRN Reason: Pain predniSONE 20 mg PO BID #10 tab traMADol HCl [Ultram] 50 - 100 mg PO Q6H PRN #15 tab PRN Reason: Pain Referrals: None,Stated [Primary Care Provider] - 1-2 days Ewa Coyle DO [Doctor of Osteopathic Medicine] - As Soon As Possible Time of Disposition: 10:20
== END 2017-12-07 10:45 | disposition home or self-care (01) ==
LOC: EC 08:37
DX: M54.32 Sciatica, left side (principal); F17.200 Nicotine dependence, unspecified, uncomplicated
CPT/HCPCS: 99284; 96372 ×2; 99283; J1885; J1170

== ENCOUNTER 2017-12-07 11:45 | Emergency (ER) | payer OTHER ==
[2017-12-07] MEDS ORDERED: HYDROmorphone 0.5 MG/0.5 ML SYRINGE IM STA (12:23)
--- NOTE | 2017-12-07 12:31 | ED ---
General Adult HPI - General Chief complaint: Back Pain/Injury Stated complaint: sciatic pain Time Seen by Provider: 12/07/17 12:03 Source: patient, RN notes reviewed Mode of arrival: ambulatory Limitations: no limitations - History of Present Illness Initial comments: 47-year-old male presents for back pain. He was seen here and discharged he went to the pharmacy came back because his back pain continues to be present. He states it's in his left leg. He denies any falls traumas or injuries to the pain. He denies any loss of bowel or bladder function or any saddle anesthesia. Patient states standing up straight hurts the back worse. Patient states that he can help the pain with certain positions. He is supposed follow- up with or so but he missed his appointment this week. He states that he just needs something to help him with this discomfort.Patient denies any recent fever , chills, shortness of breath, chest pain, back pain, abdominal pain, nausea vomiting, numbness or tingling, dysuria or hematuria, constipation or diarrhea, headaches or visual changes, or any other current symptoms. - Related Data Previous Rx's Medication Instructions Recorded Cyclobenzaprine [Flexeril] 10 mg PO TID PRN #20 tab 12/07/17 predniSONE 20 mg PO BID #10 tab 12/07/17 traMADol HCl [Ultram] 50 - 100 mg PO Q6H PRN #15 tab 12/07/17 Allergies Allergy/AdvReac Type Severity Reaction Status Date / Time No Known Allergies Allergy Verified 12/07/17 12:31 Review of Systems ROS Statement: Those systems with pertinent positive or pertinent negative responses have been documented in the HPI. ROS Other: All systems not noted in ROS Statement are negative. Past Medical History Past Medical History: Chest Pain / Angina, Myocardial Infarction ([place]) Additional Past Medical History / Comment(s): [place] x 2 Last Myocardial Infarction Date:: 2007 History of Any Multi-Drug Resistant Organisms: None Reported Past Surgical History: Hernia Repair Additional Past Surgical History / Comment(s): Knee surg Past Anesthesia/Blood Transfusion Reactions: No Reported Reaction Additional Past Anesthesia/Blood Transfusion Reaction / Comment(s): NO GENERAL ANESTHESIA. Past Psychological History: No Psychological Hx Reported Smoking Status: Current every day smoker Past Alcohol Use History: Abuse, Daily, Heavy Past Drug Use History: None Reported - Past Family History Mother Family Medical History: Cancer Additional Family Medical History / Comment(s): Lung CA Father Family Medical History: Myocardial Infarction ([place]) Additional Family Medical History / Comment(s): Cirrhosis of liver. of [place] General Exam Limitations: no limitations General appearance: alert, in no apparent distress ENT exam: Present: normal exam, mucous membranes moist Neck exam: Present: normal inspection. Absent: tenderness, meningismus, lymphadenopathy Respiratory exam: Present: normal lung sounds bilaterally. Absent: respiratory distress, wheezes, rales, rhonchi, stridor Cardiovascular Exam: Present: regular rate, normal rhythm, normal heart sounds. Absent: systolic murmur, diastolic murmur, rubs, gallop, clicks Back exam: Present: normal inspection, full ROM, other (Left-sided positive straight leg raise). Absent: tenderness Course Vital Signs 12/07/17 11:55 Temperature 97 F L Pulse Rate 125 H Respiratory 20 Rate Blood Pressure 145/95 O2 Sat by Pulse 100 Oximetry Medical Decision Making - Medical Decision Making 47-year-old male presents for back pain. At this time patient is feeling better with the injection. We discussed continuing his current regimen for treatment. We discussed follow-up with or so. We discussed return parameters all questions. Patient stated that he understood and he is given this plan. He 'll be discharged. Disposition Clinical Impression: Left sided sciatica Disposition: HOME SELF-CARE Condition: Stable Instructions: Lower Back Exercises (ED) Additional Instructions: Please use medication as discussed. Please follow up with family doctor if symptoms have not improved over the next two days. Please return to the emergency room if your symptoms increase or worsen or for any other concerns. Referrals: Ewa Coyle DO [Doctor of Osteopathic Medicine] - 1-2 days Time of Disposition: 13:15
[2017-12-07 13:19] VITALS: BP 142/87; PULSE 100; RESP 18; TEMP 98.2
== END 2017-12-07 13:24 | disposition home or self-care (01) ==
LOC: EC 11:45
DX: M54.32 Sciatica, left side (principal); F17.200 Nicotine dependence, unspecified, uncomplicated
CPT/HCPCS: 99283; 96372; J1170

== ENCOUNTER → 2018-03-09 | Outpatient (CLI) | payer OTHER | END | disposition home or self-care (01) | LOC: RADMRIMAIN 11:32 | PROVIDERS: ATTEND Family Medicine | DX: Z53.9 Procedure and treatment not carried out, unspecified reason (principal) ==

== ENCOUNTER 2018-05-26 11:06 | Emergency (ER) | payer OTHER ==
[2018-05-26] MEDS ORDERED: ACETAMINOPHEN TAB 500 MG TAB PO STA (11:51)
--- NOTE | 2018-05-26 11:55 | ED ---
General Adult HPI - General Chief complaint: Extremity Injury, Lower Stated complaint: foot pain Time Seen by Provider: 05/26/18 11:45 Source: patient Mode of arrival: wheelchair Limitations: physical limitation - History of Present Illness Initial comments: Patient is a 47-year-old male who presents with a chief complaint of right heel pain after jumping off of a 5 foot railing trying to change a light yesterday. The patient states that he had pain immediately. He denies pain in other areas including the back. Patient states that since then he has been having trouble bearing weight on the heel and has to use a walker. Patient is taking Midol for pain. Pain is characterized as sharp, aggravated by bearing weight, no alleviating factors. - Related Data Previous Rx's Medication Instructions Recorded Acetaminophen Tab [Tylenol Tab] 1,000 mg PO Q6HR #30 tablet 05/26/18 Ibuprofen [Motrin] 800 mg PO Q8HR #20 tab 05/26/18 Allergies Allergy/AdvReac Type Severity Reaction Status Date / Time No Known Allergies Allergy Verified 05/26/18 11:37 Review of Systems ROS Statement: Those systems with pertinent positive or pertinent negative responses have been documented in the HPI. ROS Other: All systems not noted in ROS Statement are negative. Musculoskeletal: Reports: arthralgia Past Medical History Past Medical History: Chest Pain / Angina, Myocardial Infarction ([place]) Additional Past Medical History / Comment(s): [place] x 2 Last Myocardial Infarction Date:: 2007 History of Any Multi-Drug Resistant Organisms: None Reported Past Surgical History: Hernia Repair Additional Past Surgical History / Comment(s): Knee surg Past Anesthesia/Blood Transfusion Reactions: No Reported Reaction Additional Past Anesthesia/Blood Transfusion Reaction / Comment(s): NO GENERAL ANESTHESIA. Past Psychological History: No Psychological Hx Reported Smoking Status: Current every day smoker Past Alcohol Use History: Abuse, Daily, Heavy Past Drug Use History: None Reported - Past Family History Mother Family Medical History: Cancer Additional Family Medical History / Comment(s): Lung CA Father Family Medical History: Myocardial Infarction ([place]) Additional Family Medical History / Comment(s): Cirrhosis of liver. of [place] General Exam Limitations: physical limitation General appearance: alert, in no apparent distress Head exam: Present: atraumatic, normocephalic Eye exam: Present: normal appearance ENT exam: Present: normal exam Neck exam: Present: normal inspection Respiratory exam: Present: normal lung sounds bilaterally. Absent: respiratory distress, wheezes Cardiovascular Exam: Present: regular rate, normal rhythm GI/Abdominal exam: Present: soft. Absent: distended, tenderness Rectal exam: Present: deferred Extremities exam: Present: other (Patient has tenderness to palpation of the posterior aspect of his right heel. Patient has chronic paresthesias of the left lower extremity secondary to sciatica. Blackburn test is unremarkable, tendinous structures appear to be intact bilaterally. Pulses are equal and 2+ bilaterally.) Back exam: Present: normal inspection, other (Patient is no tenderness to palpation or percussion of the spine.). Absent: tenderness, CVA tenderness (R) , CVA tenderness (L) Neurological exam: Present: alert, oriented X3 Psychiatric exam: Present: normal affect, normal mood Skin exam: Present: warm, dry, intact Course Vital Signs 05/26/18 11:35 Temperature 98.3 F Pulse Rate 94 Respiratory 16 Rate Blood Pressure 159/92 O2 Sat by Pulse 99 Oximetry Medical Decision Making - Medical Decision Making Patient presents with a chief complaint of a heel injury after jumping off of a 5 foot rail yesterday. On initial evaluation, vitals are stable, patient is in no acute distress. Patient be evaluated with x-rays of the right foot. Patient given Tylenol for pain. 1:06 PM X-rays show no acute fracture of the left foot. This time, patient is stable for discharge. Patient was given crutches prior to leaving the emergency department. Patient instructed to take Motrin and Tylenol for pain, return to the emergency department if symptoms worsen or change, follow-up with primary care in 1-2 days Disposition Clinical Impression: Foot pain Disposition: HOME SELF-CARE Condition: Good Instructions: Foot Contusion (ED) Prescriptions: Acetaminophen Tab [Tylenol Tab] 1,000 mg PO Q6HR #30 tablet Ibuprofen [Motrin] 800 mg PO Q8HR #20 tab Is patient prescribed a controlled substance at d/c from ED?: No Referrals: Greg Anglin MD [Primary Care Provider] - 1-2 days
--- NOTE | 2018-05-26 12:48 | XR ---
EXAMINATION TYPE: XR foot complete RT , 3 VIEWS DATE OF EXAM ORDERED: 05/26/2018 HISTORY: Pain. COMPARISON: None. FINDINGS: No fracture, dislocation or other acute osseous lesion is seen. IMPRESSION: NO ACUTE OSSEOUS LESION.
[2018-05-26 13:13] VITALS: BP 134/82; PULSE 78; RESP 18; TEMP 98
== END 2018-05-26 13:31 | disposition home or self-care (01) ==
LOC: EC 11:06
DX: M79.671 Pain in right foot (principal); F17.200 Nicotine dependence, unspecified, uncomplicated; Z98.890 Other specified postprocedural states; W17.89XA Other fall from one level to another, initial encounter; Y93.89 Activity, other specified
CPT/HCPCS: 99283